=== PATIENT | female | born 2000 | race African-American/Black ===

== ENCOUNTER 2022-11-12 08:20 | Emergency (ER) | payer MEDICAID ==
[~2022-11-12] VITALS: Ht 157.5 cm; Wt 49.0 kg
[2022-11-12] MEDS ORDERED: KETOROLAC 30MG/ML VIAL IV STA (09:56)
[2022-11-12] MEDS ORDERED: ONDANSETRON HCL 4MG/2ML INJ IV STA (09:56)
[2022-11-12] MEDS ORDERED: SODIUM CHLORIDE 0.9% 1,000 ML IV ONE (10:00)
[2022-11-12 10:12] LABS: HEMATOCRIT. 36.9 % (36.0-48.0); HEMOGLOBIN. 12.2 g/dL (12.0-16.0); MEAN CORPUSCULAR HEMOGLOBIN 26.1 pg (28.0-32.0); MEAN CORPUSCULAR VOLUME 79.2 fL (81.0-99.0); PLATELET 212 x1000/uL (130-400); RED BLOOD CELL COUNT 4.66 mill/uL (4.2-5.4); RED CELL DISTRIBUTION WIDTH 18.5 % (11.6-14.6)
[2022-11-12 10:20] LABS: PROTHROMBIN TIME 10.6 sec (9.6-11.0)
[2022-11-12 10:27] LABS: CHLORIDE 104 mEq/L (98-107)
[2022-11-12 10:36] LABS: ETHANOL BLOOD < 10 mg/dL
[2022-11-12 10:59] LABS: HCG SCREEN NEGATIVE
[2022-11-12 11:31] VITALS: BP 118/80
[2022-11-12 11:40] LABS: PLATELET ESTIMATE NORMAL
[2022-11-12 11:52] LABS: CLARITY URINE CLEAR (CLEAR); COLOR URINE ORANGE (YELLOW); KETONES URINE NEGATIVE (NEGATIVE); LEUKOCYTE ESTERASE URINE 2+ (NEGATIVE); NITRITE URINE NEGATIVE (NEGATIVE); OCCULT BLOOD URINE 3+ (NEGATIVE); PROTEIN URINE 1+ (NEGATIVE); SPECIFIC GRAVITY URINE 1.017 (1.005-1.030); UROBILINOGEN URINE 0.2 E.U./dL (0.2-1.0)
[2022-11-12] MEDS ORDERED: CEFTRIAXONE 1GM PREMIX 50 ML IV ONE (13:15)
[2022-11-12 14:07] LABS: *AMPHETAMINES SCREEN URINE NEGATIVE (NEGATIVE); *BARBITURATES SCREEN URINE NEGATIVE (NEGATIVE); *BENZODIAZEPINES SCREEN URINE NEGATIVE (NEGATIVE); *COCAINE SCREEN URINE NEGATIVE (NEGATIVE); METHADONE URINE SCREEN NEGATIVE (NEGATIVE); OPIATES URINE SCREEN NEGATIVE (NEGATIVE); PHENCYCLIDINE URINE SCREEN NEGATIVE (NEGATIVE)
[2022-11-12] MEDS ORDERED: ONDA4TAB11 PO (15:09)
[2022-11-12] MEDS ORDERED: NITR-87 MT ×2 (15:09)
[2022-11-12] MEDS ORDERED: CEPH500C2 MT (15:39)
[2022-11-12 17:29] LABS: CANNABINOID URINE SCREEN PRESUMTIVE POSITIVE (NEGATIVE)
== END 2022-11-12 15:53 | disposition home or self-care (01) ==
LOC: ER 08:20
DX: K52.9 Noninfective gastroenteritis and colitis, unspecified (principal); Z20.822 Contact with and (suspected) exposure to COVID-19
CPT/HCPCS: 36415; 74176; 80053; 80305; 80320; 81003; 83605; 83690; 84703; 85025; 85610; 87040; 87077; 87086; 87186; 87426; 96361; 96365; 96375; 99285; C9803; J0696; J1885; J2405; J7030; Z7610; G0480